=== PATIENT | female | born 1935 | race Caucasian/White ===

== ENCOUNTER 2025-08-22 14:00 | Inpatient (IN) | payer MEDICAID ==
[~2025-08-22] VITALS: Ht 162.6 cm; Wt 45.8 kg
[~2025-08-22 14:00] MED LIST: AMI2 PO; ATOR10TA PO; EMPA10TA PO; ENAL-77 PO; FERR-71 PO; LEVO75TA7 PO; METO-411 PO; PANT40TA51 PO
[2025-08-22 14:03] VITALS: O2SAT 97
[2025-08-22 15:49] LABS: BASOPHILS % 0.2 % (0.0-2.0); EOSINOPHILS % 0.3 % (0.0-5.0); HEMATOCRIT. 32.2 % (36.0-48.0); HEMOGLOBIN. 10.6 g/dL (12.0-16.0); LYMPHOCYTES % 18.2 % (20.0-50.0); MEAN PLATELET VOLUME 9.2 fl (7.4-10.4); MONOCYTES % 10.6 % (2.0-8.0); NEUTROPHILS % 70.7 % (40.0-76.0); PLATELET 186 x1000/uL (130-400); RED BLOOD CELL COUNT 3.60 mill/uL (4.2-5.4); RED CELL DISTRIBUTION WIDTH 17.8 % (11.6-14.6)
[2025-08-22 16:01] LABS: CREATININE 1.4 mg/dL (0.6-1.0); UREA NITROGEN BLOOD 21 mg/dL (9-23)
[2025-08-22 16:02] LABS: INR 1.3
[2025-08-22 16:03] LABS: ASPARTATE AMINOTRANSFERASE 48 IU/L (<34); BILIRUBIN DIRECT < 0.1 mg/dL (<=3.0); BILIRUBIN TOTAL 0.2 mg/dL (0.1-1.0)
[2025-08-22 16:04] LABS: PROTEIN TOTAL 7.4 g/dL (6.0-8.3)
[2025-08-22 16:09] LABS: TROPONIN I HIGH SENSITIVITY 36 ng/L (3.0-34)
[2025-08-22] MEDS: CALCIUM GLUCONATE 1GM PREMIX 50 ML IV NR (17:20)
[2025-08-22] MEDS: MAGNESIUM 1 G PREMIX 100 ML IV NR (17:20)
[2025-08-22 17:31] LABS: CLARITY URINE CLEAR (CLEAR); COLOR URINE YELLOW (YELLOW); GLUCOSE URINE 2+ (NEGATIVE); KETONES URINE NEGATIVE (NEGATIVE); LEUKOCYTE ESTERASE URINE NEGATIVE (NEGATIVE); NITRITE URINE NEGATIVE (NEGATIVE); OCCULT BLOOD URINE NEGATIVE (NEGATIVE); PH URINE 6.5 (4.5-8.0); PROTEIN URINE NEGATIVE (NEGATIVE); SPECIFIC GRAVITY URINE 1.010 (1.005-1.030); UROBILINOGEN URINE 0.2 E.U./dL (0.2-1.0)
[2025-08-22] MEDS ORDERED: DOCUSATE SODIUM 100MG CAPSULE PO PRN (17:45)
[2025-08-22] MEDS ORDERED: GUAIFENESIN 200MG/10ML SUGAR FREE UDC PO PRN (17:45)
[2025-08-22] MEDS ORDERED: ACETAMINOPHEN 325MG TABLET PO PRN ×2 (17:45)
[2025-08-22] MEDS ORDERED: IPRATROPIUM/ALBUTEROL 0.5-3(2.5)MG/3ML NEB HHN PRN (17:45)
[2025-08-22] MEDS ORDERED: ONDANSETRON HCL 4MG/2ML INJ IV PRN (17:45)
[2025-08-22] MEDS ORDERED: MAGNESIUM 1 G PREMIX 100 ML IV ONE (17:45)
[2025-08-22] MEDS ORDERED: CLONIDINE 0.1MG TABLET PO PRN (17:45)
[2025-08-22] MEDS ORDERED: MAGNESIUM/ALUMINUM HYDROXIDE/SIMETHICONE 30ML UDC PO PRN (17:45)
[2025-08-22 17:50] LABS: BACTERIA URINE NONE SEEN; RBC URINE 0-2 /hpf (0-2); SQUAMOUS EPITHELIAL CELL URINE RARE /lpf (RARE/1+); WBC URINE 0-2 /hpf (0-2)
[2025-08-22] MEDS: ASPIRIN 325MG EC TABLET PO SCH (18:00)
[2025-08-22 18:54] VITALS: BP 140/50; PULSE 67; RESP 16; TEMP 36.5848
[2025-08-22 19:00] LABS: VITAMIN B12 SERUM 248 pg/mL (211-911)
[2025-08-22 19:04] LABS: FOLIC ACID (FOLATE) SERUM > 20.00 ng/mL (>5.38)
[2025-08-22] MEDS ORDERED: MAGNESIUM 2 G PREMIX 50 ML IV ONE (19:15)
[2025-08-22 20:00] VITALS: BP 114/76; PULSE 72; RESP 18; TEMP 36.3; O2SAT 97
[2025-08-22] MEDS: MAGNESIUM SULFATE 3 GM in DEXT 5% WATER 100 ML IV NR (21:42)
[2025-08-22] MEDS: POTASSIUM CHLORIDE 20MEQ TABLET SR PO SCH (21:42)
[2025-08-22] MEDS: ATORVASTATIN CALCIUM 10MG TABLET PO SCH (21:42)
[2025-08-22] MEDS: SODIUM CHLORIDE 0.9% 1,000 ML IV SCH (21:58)
[2025-08-23] VITALS: BP 105/45; PULSE 59; RESP 18; TEMP 36.4; O2SAT 98
[2025-08-23 00:14] LABS: CREATINE KINASE MB FRACTION 2.8 ng/mL (0.5-3.6)
[2025-08-23 00:25] LABS: PHOSPHORUS 2.8 mg/dL (2.5-4.9)
[2025-08-23 00:28] LABS: TROPONIN I HIGH SENSITIVITY 84 ng/L (3.0-34)
[2025-08-23] MEDS ORDERED: ENAL-77 MT (00:41)
[2025-08-23] MEDS ORDERED: FAMO20TA8 MT (00:41)
[2025-08-23 04:00] VITALS: PULSE 55; RESP 18; TEMP 36.7; O2SAT 97
[2025-08-23 06:49] LABS: BASOPHILS % 0.3 % (0.0-2.0); EOSINOPHILS % 0.9 % (0.0-5.0); HEMATOCRIT. 28.2 % (36.0-48.0); HEMOGLOBIN. 9.0 g/dL (12.0-16.0); LYMPHOCYTES % 34.1 % (20.0-50.0); MEAN PLATELET VOLUME 9.6 fl (7.4-10.4); MONOCYTES % 13.9 % (2.0-8.0); NEUTROPHILS % 50.8 % (40.0-76.0); PLATELET 144 x1000/uL (130-400); RED BLOOD CELL COUNT 3.12 mill/uL (4.2-5.4); RED CELL DISTRIBUTION WIDTH 17.8 % (11.6-14.6)
[2025-08-23 06:57] LABS: CREATININE 1.0 mg/dL (0.6-1.0)
[2025-08-23 06:58] LABS: LDL CHOLESTEROL 39 mg/dL (5-100); TRIGLYCERIDE 58 mg/dL (0-150); UREA NITROGEN BLOOD 14 mg/dL (9-23)
[2025-08-23 07:01] LABS: T4 FREE 0.64 ng/dL (0.89-1.76)
[2025-08-23] MEDS: LEVOTHYROXINE SODIUM 75MCG TABLET PO SCH (07:21)
[2025-08-23 08:00] VITALS: BP 147/64; PULSE 60; RESP 16; TEMP 36.8; O2SAT 95; O2SAT 97
[2025-08-23] MEDS: EMPAGLIFLOZIN 10MG TABLET PO SCH (09:12)
[2025-08-23] MEDS: FERROUS SULFATE 325MG TABLET PO SCH (09:12)
[2025-08-23] MEDS: METOPROLOL SUCCINATE 50MG ER TABLET PO SCH (09:14)
[2025-08-23] MEDS: ENOXAPARIN 30MG/0.3ML SYR SUBCUT SCH (09:16)
[2025-08-23 09:47] LABS: *AMPHETAMINES SCREEN URINE NEGATIVE (NEGATIVE)
[2025-08-23 09:48] LABS: *BARBITURATES SCREEN URINE NEGATIVE (NEGATIVE); *BENZODIAZEPINES SCREEN URINE NEGATIVE (NEGATIVE); *COCAINE SCREEN URINE NEGATIVE (NEGATIVE); CANNABINOID URINE SCREEN NEGATIVE (NEGATIVE); ECSTASY MDMA SCREEN URINE NEGATIVE (NEGATIVE); METHADONE URINE SCREEN NEGATIVE (NEGATIVE); OPIATES URINE SCREEN NEGATIVE (NEGATIVE); PHENCYCLIDINE URINE SCREEN NEGATIVE (NEGATIVE)
[2025-08-23 11:23] LABS: POTASSIUM URINE RANDOM 13.9 mEq/L; SODIUM URINE RANDOM 107.0 mEq/L
[2025-08-23 11:39] LABS: CALCIUM URINE RANDOM 1.6 mg/dL; MAGNESIUM URINE RANDOM < 1 mEq/L
[2025-08-23 12:00] VITALS: BP 145/57; PULSE 69; RESP 16; TEMP 36.4; O2SAT 98
[2025-08-23 13:13] LABS: CREATINE KINASE MB FRACTION 2.4 ng/mL (0.5-3.6)
[2025-08-23 13:16] LABS: TROPONIN I HIGH SENSITIVITY 53 ng/L (3.0-34)
[2025-08-23] MEDS ORDERED: LORAZEPAM 2MG/ML UD SYRINGE IV PRN (13:30)
[2025-08-23 16:00] VITALS: BP 99/61; PULSE 90; RESP 18; TEMP 36.3; O2SAT 99
[2025-08-23 20:00] VITALS: BP 113/66; PULSE 89; RESP 16; TEMP 36.9; O2SAT 98
[2025-08-24] VITALS: BP 139/71; PULSE 77; RESP 16; TEMP 36.5; O2SAT 95
[2025-08-24] MEDS: HALOPERIDOL LACTATE 5MG/ML VIAL IM NR (03:43)
[2025-08-24 04:00] VITALS: BP 96/75; PULSE 59; RESP 16; TEMP 36.8; O2SAT 95
[2025-08-24 07:07] LABS: BASOPHILS % 0.1 % (0.0-2.0); EOSINOPHILS % 0.5 % (0.0-5.0); HEMATOCRIT. 35.1 % (36.0-48.0); HEMOGLOBIN. 11.2 g/dL (12.0-16.0); LYMPHOCYTES % 26.3 % (20.0-50.0); MEAN PLATELET VOLUME 9.8 fl (7.4-10.4); MONOCYTES % 12.3 % (2.0-8.0); NEUTROPHILS % 60.8 % (40.0-76.0); PLATELET 172 x1000/uL (130-400); RED BLOOD CELL COUNT 3.92 mill/uL (4.2-5.4); RED CELL DISTRIBUTION WIDTH 18.0 % (11.6-14.6)
[2025-08-24 07:08] LABS: CREATININE 0.9 mg/dL (0.6-1.0); UREA NITROGEN BLOOD 12 mg/dL (9-23)
[2025-08-24 07:10] LABS: T4 FREE 0.65 ng/dL (0.89-1.76)
[2025-08-24 07:45] LABS: TROPONIN I HIGH SENSITIVITY 43 ng/L (3.0-34)
[2025-08-24 08:00] VITALS: BP 133/69; PULSE 64; RESP 16; TEMP 36.4; O2SAT 98
[2025-08-24 12:00] VITALS: BP 118/59; PULSE 61; RESP 19; TEMP 36.6; O2SAT 99
[2025-08-24 16:00] VITALS: BP 119/66; PULSE 60; RESP 16; TEMP 36.3; O2SAT 96
[2025-08-24 20:00] VITALS: BP 115/50; PULSE 65; RESP 16; TEMP 36.7; O2SAT 97
[2025-08-25] VITALS: BP 111/60; PULSE 56; RESP 16; TEMP 36.3; O2SAT 96
[2025-08-25 04:00] VITALS: BP 121/53; PULSE 64; RESP 17; TEMP 37.1; O2SAT 96
[2025-08-25] MEDS: LEVOTHYROXINE SODIUM 100MCG TABLET PO SCH (05:58)
[2025-08-25 06:37] LABS: HEMATOCRIT. 30.2 % (36.0-48.0); HEMOGLOBIN. 9.8 g/dL (12.0-16.0); MEAN PLATELET VOLUME 10.6 fl (7.4-10.4); PLATELET 126 x1000/uL (130-400); RED BLOOD CELL COUNT 3.40 mill/uL (4.2-5.4); RED CELL DISTRIBUTION WIDTH 17.6 % (11.6-14.6)
[2025-08-25 06:57] LABS: CREATININE 0.9 mg/dL (0.6-1.0)
[2025-08-25 07:01] LABS: UREA NITROGEN BLOOD 11 mg/dL (9-23)
[2025-08-25 08:00] VITALS: BP 133/63; PULSE 63; RESP 16; TEMP 36.6; O2SAT 97
[2025-08-25 12:00] VITALS: BP 125/71; PULSE 61; RESP 17; TEMP 36.4; O2SAT 100
[2025-08-25 16:00] VITALS: BP 130/61; PULSE 71; RESP 17; TEMP 36.8; O2SAT 98
[2025-08-25 16:57] LABS: EOSINOPHILS % MANUAL 1.0 % (0.0-5.0); LYMPHOCYTES % MANUAL 31.0 % (20.0-60.0); MONOCYTES % MANUAL 10.0 % (2.0-8.0); NEUTROPHILS % MANUAL 58.0 % (45.0-75.0); PLATELET ESTIMATE SLIGHTLY DECREASED
[2025-08-25] MEDS ORDERED: METO-385 PO (19:06)
[2025-08-25] MEDS ORDERED: LEVO100T9 PO (19:06)
[2025-08-25 20:00] VITALS: BP 151/66; PULSE 70; RESP 18; TEMP 36.2; O2SAT 97
[2025-08-26] MEDS ORDERED: METOPROLOL SUCCINATE 50MG ER TABLET PO SCH (09:00)
== END 2025-08-25 20:37 | disposition home or self-care (01) | DRG 52 ==
LOC: ER 14:00 → EDBEDREQ 14:20 → EDBEDREQTM 16:13 → EDBEDREQ 16:13 → ENRESERV 17:16 → 5WST 19:36
PROVIDERS: ADMIT Internal Medicine; ATTEND Internal Medicine
DX: G92.8 Other toxic encephalopathy (principal); E83.51 Hypocalcemia; I11.0 Hypertensive heart disease with heart failure; I50.22 Chronic systolic (congestive) heart failure; N17.9 Acute kidney failure, unspecified; R56.9 Unspecified convulsions; E05.90 Thyrotoxicosis, unspecified without thyrotoxic crisis or storm; E03.9 Hypothyroidism, unspecified; I35.0 Nonrheumatic aortic (valve) stenosis; D64.9 Anemia, unspecified; F03.90 Unspecified dementia, unspecified severity, without behavioral disturbance, psychotic disturbance, mood disturbance, and anxiety; E83.42 Hypomagnesemia; I44.0 Atrioventricular block, first degree; E87.6 Hypokalemia; E78.00 Pure hypercholesterolemia, unspecified; I25.10 Atherosclerotic heart disease of native coronary artery without angina pectoris; I25.2 Old myocardial infarction; Z79.84 Long term (current) use of oral hypoglycemic drugs; Z86.73 Personal history of transient ischemic attack (TIA), and cerebral infarction without residual deficits; Z79.899 Other long term (current) drug therapy
CPT/HCPCS: 36415; 71045; 80048; 80061; 80076; 80305; 81003; 82340; 82550; 82553; 82607; 82728; 82746; 83540; 83550; 83735; 83930; 83935; 84100; 84133; 84300; 84439; 84443; 84484; 85025; 86850; 86900; 93005; 93970; 96365; 96368; 97162; 97165; 97166; 97535; 99291; J0612; J1630; J1650; J3475; J7060